=== PATIENT | female | born 1950 | race Two or more races ===

== ENCOUNTER 2025-02-16 00:24 | Emergency (ER) | payer MEDICARE, MEDICAID, SELFPAY ==
[2025-02-16] VITALS (8 sets, daily range): BP systolic 113–155; BP diastolic 80–108; PULSE 102–124; RESP 14–22; TEMP 36.8–37.1; O2SAT 97–100
--- NOTE | 2025-02-16 00:28 | PD.EDSOB ---
ED SOB =RME/HPI General Chief Complaint: Shortness of Breath/Dyspnea Stated Complaint: SOB Time Seen by Provider: 02/16/25 00:54 Arrival date/time: 02/16/25 00:24 RME / HPI RME / HPI Narrative: This section includes all my notes and documentations, including HPI, PE, and ED course. Maximo Russo MD HPI: 74yo female BIBA from [facility] here with sudden AMS and hypoxia just [employer]. With obvious emesis on her shirt. No other obvious concerns. ROS: Can't obtain from the patient due to current clinical condition. Physical Exam: General: Obtunded. Eyes: Conjunctivae and lids clear. PERRL. EOMI. ENT: No nasal congestion. Neck: Supple. No carotid bruit. No JVD. Heart: RRR. Lungs: No respiratory distress. Good air movement. No severe rhonchi, wheezing, rales. Abdomen: Soft with no obvious tenderness. Normal bowel sounds. No distension. No rebound or guarding. Skin: Warm and dry. Neuro: Obtunded. Cranial nerves grossly normal. No obvious peripheral motor deficits. I reviewed EMS and [facility] notes. I reviewed all diagnostic test results. My interpretation of the chest x-ray is NAD. My review of the gallbladder US report is choledocholithiasis. My review of the CT head report is NAD. My review of the CT chest abdomen pelvis report is NAD. Blood tests remarkable for WBC 14.4, ESR 38, Beta Hydroxybutyrate 1.0. COVID/Influenza negative. At this point, diagnoses include choledocholithiasis with normal LFT. Treatment here included Solumedrol, Zofran, Ativan, Duoneb, and NS. Significant improvement noted, patient's mental status returned to baseline. I talked to her daughter (Aniyah Malin) on the phone twice. About the presentation and exam and diagnostics and treatments here.? Doesn't want MRCP and any surgeries or procedures and hospitalization or transfer to other hospital. Wants mom to go back to the [facility] and be comfortable as much as possible. Based on my best medical judgment, made decision no further evaluation or treatment indicated at this time. Discharge Instructions from Dr. Russo printed for you: 1. After extensive evaluation, there is no immediately life-threatening condition. Such as stroke or brain tumor or heart attack or severe pneumonia/UTI or sepsis. 2. I talked to the daughter (Aniyah Malin) twice over the phone. Patient's mental status returned close to normal. 3. Main diagnosis may be stone in the common bile duct. But this isn't affecting the organs, including the liver. And the daughter isn't interested in any procedures or surgeries. She requested good pain control so her mom can be comfortable. 4. Recheck with professional nursing assistant on 02/17/2025. Ask to review all test results and official radiology reports, to make sure you receive all necessary follow-ups and monitoring. 5. Seek immediate medical care with worsening or with any concerns. Maximo Russo MD Related Data Home Medications ?Medication ?Instructions ?Recorded ?Confirmed pimavanserin 34 mg capsule 34 mg PO QDAY 09/27/21 09/27/21 (Nuplazid) Allergies Allergy/AdvReac Type Severity Reaction Status Date / Time aspirin Allergy Severe Vomiting/ Unverified 01/26/19 14:21 Review of Systems Review of Systems Systems Reviewed: All systems reviewed, normal except as documented Past Medical History Past Medical History NEUROLOGIC: Positive Neurological Disorders, Dementia and Parkinson's Disease CARDIAC: Negative Congestive Heart Failure RESPIRATORY: Negative Chronic Obstructive Pulmonary Disease (COPD) GENITOURINARY: Negative Renal Disease ENDOCRINE: Negative Diabetes Mellitus Type 1 or Diabetes Mellitus Type 2 Surgical History SURGICAL: Positive Abdominal Surgery (Cholecystectomy 10 years ago) Social History SMOKING STATUS: Never smoker SUBSTANCE USE: does not use ED Exam Narrative Physical exam: As noted in HPI. Course Quality Measures none Orders Category Date Time Status Bedside COVID-19 Antigen Test NOW Care 02/16/25 00:34 Completed Bedside Influenza A&B Antigen Test NOW Care 02/16/25 00:[address] Screening NOW Care 02/16/25 00:34 Completed EKG (ED ONLY) *Do not use* NOW Care 02/16/25 00:35 Completed Saline [Insert IV] NOW Care 02/16/25 00:34 Completed Straight [In and Out Catheter] X1 Care 02/16/25 00:[address] chest abdomen pelvis wo Stat Exams 02/16/25 01:[address] head/brain wo con Stat Exams 02/16/25 00:35 Completed EKG (ED Only) Stat Exams 02/16/25 00:35 Ordered US gall bladder Stat Exams 02/16/25 00:35 Completed XR chest 1V portable Stat Exams 02/16/25 00:35 Completed ABG [Arterial Blood Gas] Stat Lab 02/16/25 01:23 Completed Ammonia Stat Lab 02/16/25 00:56 Completed Amylase Stat Lab 02/16/25 00:56 Completed BNP [B-Type Natriuretic Peptide] Stat Lab 02/16/25 00:56 Completed Beta Hydroxybutyrate Stat Lab 02/16/25 00:56 Completed Bilirubin,Direct Stat Lab 02/16/25 00:56 Completed Blood Culture (Lab) Stat Lab 02/16/25 00:58 Received CBC Stat Lab 02/16/25 00:56 Completed CMP [Comprehensive Metabolic Panel] Stat Lab 02/16/25 00:56 Completed CRP [C-Reactive Protein] Stat Lab 02/16/25 00:56 Completed D-Dimer Stat Lab 02/16/25 00:56 Completed ESR [Sed Rate (ESR)] Stat Lab 02/16/25 00:56 Completed Free T4 (Free Thyroxine) Stat Lab 02/16/25 00:56 Completed Lactate (Lactic Acid) Stat Lab 02/16/25 00:56 Completed Lipase Stat Lab 02/16/25 00:56 Completed Magnesium Stat Lab 02/16/25 00:56 Completed PT [Prothrombin Time with INR] Stat Lab 02/16/25 00:58 Completed PTT [Partial Thromboplastin Time] Stat Lab 02/16/25 00:58 Completed Procalcitonin Stat Lab 02/16/25 00:56 Completed TSH [Thyroid Stimulating Hormone] Stat Lab 02/16/25 00:56 Completed Troponin I Stat Lab 02/16/25 00:56 Completed UA, C/S IF [Urinalysis, C/S if Indicated] Stat Lab 02/16/25 02:30 Completed Albuterol/Ipratr Rt Bessie [Duoneb Rt Bessie] Med 02/16/25 00:37 Discontinued 3 ml INH X1 ONE LORazepam [Ativan Inj] Med 02/16/25 00:43 Discontinued 1 mg IVP X1 ONE MethylPREDNISolone.* [SoluMEDROL Inj] Med 02/16/25 00:37 Discontinued 125 mg IVP X1 ONE Ondansetron Inj [Zofran Inj] Med 02/16/25 00:34 Discontinued 4 mg IVP X1 ONE Sodium Chloride 0.9% 1000 ml [Ns] 1,000 ml Med 02/16/25 00:34 Discontinued IV 100 mls/hr Vital Signs Vital signs: Vital Signs Temperature 98.7 F 02/16/25 00:54 Pulse Rate 124 H 02/16/25 00:54 Respiratory Rate 20 02/16/25 00:54 Blood Pressure 143/94 H 02/16/25 00:54 Pulse Oximetry (%) 99 02/16/25 00:54 Oxygen Delivery Method Room Air 02/16/25 00:54 Shortness of Breath / Dyspnea MDM Narrative MDM Narrative:: 74yo female BIBA from [facility] here with shortness of breath. Per EMS, patient was at her normal baseline 30 minutes prior to arrival. SNF staff found the patient to be altered and unresponsive. EMS notes the patient had emesis on her shirt. Patient was saturating at 97% via nonrebreather mask. Blood sugar en route was 129. No other complaints reported. Patient data External records reviewed:: [facility] [place] previous records (Per chart review, patient was seen here on 09/26/21 for diarrhea.), EMS form and [facility] records (Per [facility], patient is a DNR with comfort measures.) Clinical information provided by:: EMS Social determinants that could affect healthcare access:: housing (SNF resident) Patient has the following chronic illnesses:: dementia, Parkinson's disease How is presenting disease/condition affected by chronic disease/condition?: uneffected by Evaluation data The following diagnostics were reviewed and interpreted by me:: lab results, radiology exam(s) and EKG tracing(s) Lab and/or radiology exams considered but not ordered:: none Interpretation Summary: I reviewed all diagnostic test results. My interpretation of the chest x-ray is NAD. My review of the gallbladder US report is choledocholithiasis. My review of the CT head report is NAD. My review of the CT chest abdomen pelvis report is NAD. Blood tests remarkable for WBC 14.4, ESR 38, Beta Hydroxybutyrate 1.0. COVID/Influenza negative. Medications / Prescriptions Medications or Prescriptions considered but not ordered:: none Medication administrations:: Medication Administration History Discontinued Medications Albuterol/Ipratropium (Albuterol/Ipratropium (Duoneb) Rt Bessie 3 Ml Nebu) 3 ml INH X1 ONE Stop: 02/16/25 00:38 Last Admin: 02/16/25 01:32 Dose: 3 ml Documented By: ESTIVEN Sodium Chloride (Ns) 1,000 mls @ 100 mls/hr IV .Q10H ONE Stop: 02/16/25 10:33 Last Infusion: 02/16/25 05:30 Dose: 0 mls/hr Documented By: Admin: 02/16/25 01:23 Dose: 100 mls/hr Documented By: CG Lorazepam (Lorazepam 2 Mg/Ml Vial) 1 mg IVP X1 ONE Stop: 02/16/25 00:44 Last Admin: 02/16/25 01:21 Dose: 1 mg Documented By: CG Methylprednisolone Sodium Succinate (Methylprednisolone Sod Succ 62.5 Mg/Ml 2ml Vial) 125 mg IVP X1 ONE Stop: 02/16/25 00:38 Last Admin: 02/16/25 01:21 Dose: 125 mg Documented By: CG Ondansetron HCl (Ondansetron Inj 2 Mg/Ml Inj 2 Ml) 4 mg IVP X1 ONE; Protocol Stop: 02/16/25 00:35 Last Admin: 02/16/25 01:22 Dose: 4 mg Documented By: JARROD Solumedrol, Zofran, Attahir, Jamal, NS Consultations Consultation(s) initiated? (list below): No Diagnosis Shortness of Breath Differential Diagnosis: acute exacerbation of chronic obstructive airways disease, congestive heart failure, community acquired pneumonia, asthma with exacerbation, pulmonary embolism and other (CVA, brain tumor, MD, dehydration, electrolyte abnormalities, UTI, pneumonia, sepsis, biliary) Most likely diagnosis given after review of the tests above:: Choledocholithiasis Admission Indicated Admission indicated?: not indicated Explain why admission is indicated or not indicated:: With significant improvement and POA not wanting further care, there was no indication for admission. Admission Request Was there a request for admission?: No Disposition Plan Disposition Plan: Discharge Discharge Attestation Discharge Attestation: The patient and all family members were given an opportunity to ask questions and understood the discharge instructions. Discharge instructions specifically effects, indications for sooner follow up or return to the emergency department, and the expected course of current diagnosis. Patient condition: Stable Discharge Plan Plan Patient Disposition: Xfer Skilled Nsg Fac (SNF) Prescriptions/Referrals Prescriptions/Med Rec: No Action Nuplazid 34 mg capsule 34 mg PO QDAY Referrals: Jabier Yepez MD [Primary Care Provider] - In 1 week Problem List Clinical Impression: Choledocholithiasis Patient/Caregiver Discharge Instructions Discharge Activity: activity as tolerated Education Materials: ED Abdominal Pain Gallstone Poss Additional Instructions: Discharge Instructions from Dr. Russo printed for you: 1. After extensive evaluation, there is no immediately life-threatening condition. Such as stroke or brain tumor or heart attack or severe pneumonia/UTI or sepsis. 2. I talked to the daughter (Aniyah Malin) twice over the phone. Patient's mental status returned close to normal. 3. Main diagnosis may be stone in the common bile duct. But this isn't affecting the organs, including the liver. And the daughter isn't interested in any procedures or surgeries. She requested good pain control so her mom can be comfortable. 4. Recheck with professional nursing assistant on 02/17/2025. Ask to review all test results and official radiology reports, to make sure you receive all necessary follow-ups and monitoring. 5. Seek immediate medical care with worsening or with any concerns. Print Language: Ghanaian Stand Alone Forms: [employer] Award Info., Patient Portal Info Letter
--- NOTE | 2025-02-16 00:35 | XR_ITS ---
Examination: AP chest single view Technique one AP portable semiupright chest single view Date and time: February 16, 2025 0105 hours Comparison February 15, 2019 INDICATIONS: Shortness of breath today. FINDINGS: Significant elevation left hemidiaphragm with minor atelectasis at the left base Normal heart size No pneumonia or pulmonary edema IMPRESSION: No pneumonia or pulmonary edema
--- NOTE | 2025-02-16 00:35 | XR_ITS ---
Examination: CT brain head without contrast. 2-D sagittal coronal reconstructions Date and time of exam:February 16, 2025, 1441 hours INDICATIONS: Onset altered mental status today CTDI: vol (mGy):49.0 DLP: (mGycm):1174 Technique: Multiple CT axial sections of the brain have been obtained, 5 mm slice thickness. Contrast has not been administered. 2-D sagittal, coronal reconstructions have been obtained Low dose protocols were performed. One or more of the following dose reduction techniques were used; automated exposure control, adjustment of the mA and/or KV according to patient size, use of iterative reconstruction technique. Findings: No significant ventricular enlargement. Intra-axial or extra-axial hemorrhage density is not seen. No mass effect or midline shift Basal cisterns are not remarkable. Fourth ventricle is midline. Cranial vault intact. Impression: Negative for acute hemorrhage, mass effect or midline shift
--- NOTE | 2025-02-16 00:35 | XR_ITS ---
Examination: Abdomen sonogram, Limited Date and time of exam: February 16, 2025, 0135 hours INDICATIONS: Abdominal pain and epigastric pain this week Technique: Real-time son scale transabdominal sonographic images of the upper abdomen obtained. Findings: Absent gallbladder Common bile duct 0.6 cm suspicious for 5 mm common bile duct stone Pancreatic head 1.8 cm Liver 14.4 cm lobular contour Normal hepatopedal portal venous flow Patent IVC IMPRESSION: Recommend MRCP follow-up to exclude 5 mm stone in the common bile duct
[2025-02-16 01:08] LABS: Basophils # (Auto) 0.1 Thou/mm3 (0.0-0.2); Basophils % (Auto) 0 % (0-2.5); Eosinophils # (Auto) 0.9 Thou/mm3 (0.0-0.5); Eosinophils % (Auto) 6 % (0-10); Hematocrit 40.6 % (36.0-46.0); Hemoglobin 13.9 g/dL (12.0-16.0); Immature Granulocytes Auto 0.04 Thou/mm3 (0.00-0.00); Lymphocytes # (Auto) 1.3 Thou/mm3 (1.0-4.8); Lymphocytes % (Auto) 9 % (10-50); Mean Corpuscular HGB Conc 34.2 g/dl (31.0-37.0); Mean Corpuscular Hemoglobin 30.5 pg (25.0-35.0); Mean Corpuscular Volume 89 fL (80-100); Monocytes # (Auto) 0.5 Thou/mm3 (0.0-0.8); Monocytes % (Auto) 3 % (0-12); Neutrophils # (Auto) 11.6 Thou/mm3 (1.8-7.7); Neutrophils % (Auto) 81 % (37-80); Nucleated Red Blood Cell # 0.00 Thou/mm3 (0.00-0.00); Nucleated Red Blood Cell % 0 /100 WBC (0); Platelet Count 282 Thou/mm3 (140-440); RDW Standard Deviation 43.1 fL (36.4-46.3); Red Blood Count 4.56 Miln/mm3 (4.00-5.20); White Blood Count 14.4 Thou/mm3 (3.6-11.0)
[2025-02-16 01:10] LABS: Lactate (Lactic Acid) 1.7 mMol/L (0.4-2.0)
[2025-02-16 01:15] LABS: Beta Hydroxybutyrate 1.0 mmol/L (<0.6); Sed Rate (ESR) 38 mm/hr (0-30)
[2025-02-16] MEDS: MethylPREDNISolone SOD SUCC 62.5 MG/ML 2ML VIAL 125 MG IVP (01:21)
[2025-02-16] MEDS: LORazepam 2 MG/ML VIAL 1 MG IVP (01:21)
[2025-02-16 01:22] LABS: INR 1.1 (0.9-1.3); Partial Thromboplastin Time 27.7 Seconds (22.0-36.0); Prothrombin Time 11.9 Seconds (9.0-12.2)
[2025-02-16] MEDS: ONDANSETRON INJ 2 MG/ML INJ 2 ML 4 MG IVP (01:22)
[2025-02-16] MEDS: SODIUM CHLORIDE 0.9% 1000 ML 1,000 ML 100 ML IV (01:23)
[2025-02-16 01:26] LABS: B-Type Natriuretic Peptide 29 pg/mL (0-100); D-Dimer 255 ng/mL (<600)
[2025-02-16 01:27] LABS: Ammonia < 10 uMol/L (11-32)
[2025-02-16 01:28] LABS: Base Excess 1 (-3-3); HCO3 26 mEq/L (20-26); Inspired Oxygen, FIO2 21 %; O2 Saturation 96 % (91-98); PCO2 40 mmHg (32.0-48.0); PO2 74 mmHg (83-108); pH, Arterial 7.41 (7.35-7.45)
[2025-02-16 01:30] LABS: Allen Test Performed/OK; Puncture Site Right Radial
[2025-02-16] MEDS: ALBUTEROL/IPRATROPIUM (Duoneb) RT SOL 3 ML NEBU INH (01:32)
[2025-02-16 01:36] LABS: Alanine Aminotransferase 13 U/L (10-49); Albumin, Serum 4.2 gm/dL (3.4-4.8); Albumin/Globulin Ratio 1.2 (1.2-2.2); Alkaline Phosphatase 67 U/L (46-116); Amylase 35 U/L (30-118); Anion Gap 10 (7-16); Aspartate Amino Transferase 18 U/L (0-34); BUN/Creatinine Ratio 40 Ratio (12-20); Bilirubin,Direct 0.1 mg/dL (0.0-0.3); Bilirubin,Total 0.5 mg/dL (0.3-1.2); Blood Urea Nitrogen 20 mg/dL (9-23); C-Reactive Protein < 0.5 mg/dL (0.0-0.9); Calcium 9.3 mg/dL (8.3-10.6); Calcium (Corrected) 9.3 mg/dL (8.5-10.1); Carbon Dioxide 24.1 mMol/L (20.0-31.0); Chloride 108 mMol/L (98-107); Creatinine (Component) 0.5 mg/dL (0.6-1.3); Estimated Creatinine Clearance 39.7 mL/min (>60); Free T4 (Free Thyroxine) 1.22 ng/dL (0.89-1.76); Globulin 3.5 gm/dL (2.3-3.5); Glucose 128 mg/dL (74-106); Lipase 23 U/L (12-53); Magnesium 1.6 mg/dL (1.6-2.6); Osmolality,Calculated 287 (275-295); Potassium 4.0 mMol/L (3.4-5.1); Procalcitonin 0.04 ng/ml (0.0-0.49); Sodium 142 mMol/L (136-145); Thyroid Stimulating Hormone 0.83 uIU/mL (0.55-4.78); Total Protein 7.7 gm/dL (5.7-8.2); Troponin I < 0.002 ng/mL (0.0-0.045); eGFR > 60 See Note
--- NOTE | 2025-02-16 01:40 | XR_ITS ---
Examination: CT chest, without intravenous contrast. CT abdomen, without intravenous contrast. CT pelvis, without intravenous contrast. 2-D sagittal and coronal reconstructions. 3-D reconstructions. Date and time of exam:February 16, 2025, 0252 hours Comparison December 18, 2010 INDICATIONS: Chest pain and shortness of breath abdominal pain today CTDI vol (mgy) 9.52. DLP (MGycm)660 Technique: Multiple CT images, 3.0 mm slice thickness, obtained chest, abdomen, pelvis, with the high-resolution 64 slice scanner.. Sagittal and coronal 2-D reconstructions are obtained. 3-D reconstructions Low dose protocols were performed. One or more of the following dose reduction techniques were used; automated exposure control, adjustment of the mA and/or KV according to patient size, use of iterative reconstruction technique. Findings: Enlarged right thyroid lobe with poorly defined bilateral thyroid nodules No thoracic aortic aneurysmal dilatation. Pulmonary artery segments are not enlarged. Mild vascular congestion. No pneumonia or pulmonary edema. No visualized liver or splenic lesion No pancreatic mass. No renal or ureteral calculi, no hydronephrosis Moderate to large amounts of stool throughout the colon No pericecal inflammatory change Cystic mass in the pelvis measuring at least 10 x 9 cm Atrophic uterus Abundant stool in the rectum with thickening of the rectal wall Urinary Martinez catheter with air in the urinary bladder Severe osteopenia, grade 1 anterolisthesis L4 on L5 IMPRESSION: Thyromegaly with thyroid nodules, consider dedicated thyroid sonography follow-up Large cystic mass in the pelvis, differential would include cystadenoma, cystadenocarcinoma, recommend pelvic sonography follow-up Abundant stool in the rectum, thickening of the rectal wall, differential would include proctitis Air in urinary bladder which may relate to placement of the Martinez catheter
[2025-02-16 02:45] LABS: Collection Type, Urine Clean Catch; RBC,Urine 0 /hpf (0-3); WBC,Urine 0 /hpf (0-5)
--- NOTE | 2025-02-16 02:45 | PRELIM_ITS ---
Right upper quadrant abdominal ultrasound with Doppler and wave Doppler spectral analysis. February 16, 2025 0135 hours Clinical history: Abdominal pain and vomiting Technique: Grayscale and color flow images of the right upper quadrant are provided. Hepatic and portal veins were also imaged with color flow images. Comparison: None. Findings: The liver demonstrates heterogenous echogenicity and lobular margins. No intrahepatic biliary ductal dilatation. Status post cholecystectomy. The common bile duct measures 6.2 mm. Stone in the CBD. The pancreas is unremarkable to the extent visualized. The imaged portions of the right kidney are within normal limits. The portal vein is patent with hepatopetal flow with normal wave Doppler spectral analysis. The hepatic veins are patent with normal wave Doppler spectral analysis. The IVC is patent with normal wave Doppler spectral analysis. Impression: Choledocholithiasis. Surgical consult is recommended. Probable cirrhosis. Report Electronically Signed By: Kaiden Pulido 02/16/2025 2:44:31 AM [EST]
--- NOTE | 2025-02-16 03:00 | PRELIM_ITS ---
CT scan of the head without intravenous contrast (axial sections with sagittal and coronal reformats). February 16, 2025 0241 hours Clinical History: AMS Comparison: None Findings: There is no intracranial hemorrhage, extra-axial collection, mass, mass-effect or midline shift. There is mild white matter disease within the cerebral hemispheres which is nonspecific but may represent chronic small vessel ischemic change. There is involutional atrophy of the cerebral hemispheres and cerebellum. There is no CT evidence of acute large vascular territorial infarct. Ventricles are not enlarged or effaced. Mild basal ganglia calcifications are noted within the cerebral hemispheres. There is atherosclerotic calcification along the carotid siphons. Visualized paranasal sinuses and tympanomastoid cavities are clear except for bilateral sphenoid sinus fluid/mucosal thickening. The bony calvarium is intact. Impression: No intracranial hemorrhage, mass-effect or midline shift. No CT evidence of acute large vascular territorial infarct. Report Electronically Signed By: Ruddy Robb 02/16/2025 2:59:41 AM [EST]
[2025-02-16 03:16] LABS: Bacteria,Urine Rare; Bilirubin,Urine Negative (Negative); Blood,Urine Negative (Negative); Clarity,Urine Clear (Clear/Hazy); Color,Urine Yellow (Lt Yel-Yel); Culture Indicated,Urine Not Indicated; Glucose, Urine Negative (Negative); Ketones,Urine 4+ (Negative); Leukocyte Esterase,Urine Negative (Negative); Nitrite,Urine Negative (Negative); PH,Urine 6.0 (5.0-7.0); Protein,Urine Trace (Neg - Trace); Specific Gravity,Urine 1.035 (1.001-1.035); Squamous Epithelial Cell,Urine < 1 /hpf (0-5); Urobilinogen,Urine Negative mg/dL (0.0-1.0)
--- NOTE | 2025-02-16 03:49 | PRELIM_ITS ---
CT scan of the chest, abdomen and pelvis without intravenous contrast (axial sections with sagittal and coronal reformats) February 16, 2025 0245 hours Clinical History: SOB, abdominal pain. Comparison: Ultrasound of February 16, 2025. Findings: The lungs are clear. There is no pleural effusion or pneumothorax. The aorta is within normal limits for age on this noncontrast study. No evidence of mediastinal mass or lymphadenopathy. There is no pericardial effusion. The liver, spleen, pancreas, adrenals and kidneys are unremarkable on this noncontrast study. The gallbladder is not revisualized, surgically absent versus contracted. Status post small bowel resection. Impacted fecaloma in the rectum. No evidence of bowel obstruction. No evidence of appendicitis. The urinary bladder is nondistended, limited evaluation. Air within the urinary bladder. Martinez catheter in place. There is no free fluid or free air. Mild anterolisthesis of L4. Degenerative changes of the imaged portions of the spine. Chronic multilevel disc disease. No acute fractures. Vascular calcifications. Elevated left hemidiaphragm. Bilateral thyroid nodules, the largest cyst hypodensity in the right thyroid lobe and measures 2.9 cm. Coronary arteries calcifications. Large right ovarian cystic lesion measuring 10.2 cm. Impression: 1. Elevated left hemidiaphragm of uncertain etiology. 2. Large right ovarian cystic lesion, correlation with pelvic ultrasound is recommended to exclude ovarian cancer and/or ovarian torsion. 3. Hypodense thyroid nodules, correlation with thyroid function tests and ultrasound is recommended. 4. Coronary arteries calcifications. If acute myocardial infarction is clinically suspected consider correlation with troponin. 5. Impacted fecaloma in the rectum. Consider disimpaction. 6. Air within the urinary bladder, possibly postprocedural or possibly due to cystitis. Please, correlate clinically. Report Electronically Signed By: Kaiden Pulido 02/16/2025 3:49:06 AM [EST]
--- NOTE | 2025-02-16 05:16 | PC.NURSE ---
Report called to [facility], report received by PRIYA Barnett
== END 2025-02-16 05:40 | disposition skilled nursing facility (03) ==
PROVIDERS: Emergency Provider Emergency Medicine; PCP Hospitalist
DX: K80.50 Calculus of bile duct without cholangitis or cholecystitis without obstruction (principal); R41.82 Altered mental status, unspecified; R06.02 Shortness of breath; R07.9 Chest pain, unspecified; G20.A1 Parkinson's disease without dyskinesia, without mention of fluctuations; F02.80 Dementia in other diseases classified elsewhere, unspecified severity, without behavioral disturbance, psychotic disturbance, mood disturbance, and anxiety; Z75.1 Person awaiting admission to adequate facility elsewhere
CPT/HCPCS: 36415; 36600; 70450; 71045; 71250; 74176; 76705; 80053; 81001; 82010; 82140; 82150; 82248; 82803; 83605; 83690; 83735; 83880; 84145; 84439; 84443; 84484; 85025; 85379; 85610; 85652; 85730; 86140; 87040; 87400; 87811; 93005; 94640; 96361; 96374; 96375; 99284; A9270; J2060; J2405; J2919; J7030